=== PATIENT | male | born 1990 | race Hispanic/Latino ===

== ENCOUNTER 2020-12-08 19:18 | Emergency (ER) | payer OTHER ==
[~2020-12-08] VITALS: Ht 177.8 cm; Wt 58.5 kg
[2020-12-08 19:22] VITALS: BP 165/90
[2020-12-08 19:40] LABS: BASOPHILS % (AUTO) 0.5 % (0.0-5.0); EOSINOPHILS % (AUTO) 2.2 % (0.0-8.0); HEMATOCRIT 40.4 % (42-54); MEAN CORPUSCULAR HEMOGLOBIN 31.1 pg (27.0-33.0); MEAN CORPUSCULAR HGB CONC 33.7 g/dL (32.0-36.0); MEAN CORPUSCULAR VOLUME 92.2 fL (79-99); MONOCYTES % (AUTO) 6.6 % (3.0-13.0); NEUTROPHILS % (AUTO) 67.4 % (40.0-77.0); PLATELET COUNT (AUTO) 182 K/uL (130-400); RED BLOOD CELL COUNT(AUTO) 4.38 MIL/uL (4.50-6.20); RED CELL DISTRIBUTION WIDTH 12.7 % (11.0-15.5); WHITE BLOOD COUNT (AUTO) 13.4 K/uL (4.8-10.8)
[2020-12-08 19:52] LABS: INR 1.1 (0.85-1.15); PROTHROMBIN TIME 11.9 SEC (9.6-11.6)
[2020-12-08 19:55] LABS: CREATININE 1.4 mg/dL (0.5-1.5); POTASSIUM 3.5 mmol/L (3.5-5.1)
[2020-12-08 20:01] LABS: B-TYPE NATRIURETIC PEPTIDE 13 pg/mL (0-100)
[2020-12-08 20:05] LABS: ALBUMIN 4.2 g/dL (3.5-5.0); BILIRUBIN,TOTAL 0.4 mg/dL (0.2-1.0); MAGNESIUM 2.2 mg/dL (1.80-2.40); TOTAL PROTEIN, SERUM 8.2 g/dL (6.0-8.3)
[2020-12-08] MEDS ORDERED: MELO7.5T12 PO (21:53)
[2020-12-08] MEDS ORDERED: CYCL10TA7 PO (21:53)
== END 2020-12-08 22:02 | disposition home or self-care (01) ==
LOC: EDH 19:18
DX: S29.011A Strain of muscle and tendon of front wall of thorax, initial encounter (principal); Z79.899 Other long term (current) drug therapy; X58.XXXA Exposure to other specified factors, initial encounter; Y93.89 Activity, other specified; Y92.89 Other specified places as the place of occurrence of the external cause; Y99.0 Civilian activity done for income or pay
CPT/HCPCS: 36415; 71045; 80053; 80061; 82550; 83735; 83874; 83880; 84484; 85025; 85378; 85610; 93005